=== PATIENT | female | born 2000 | race African-American/Black ===

== ENCOUNTER 2022-04-11 18:42 | Emergency (ER) | payer MEDICAID ==
[~2022-04-11] VITALS: Ht 160 cm; Wt 104.0 kg
[2022-04-11 18:47] VITALS: BP 167/100
[2022-04-11] MEDS ORDERED: HYDROCODONE/ACETAMINOPHEN 5/325MG TABLET PO ONE (20:30)
[2022-04-11] MEDS ORDERED: IBUPROFEN 400MG TABLET PO ONE (20:30)
[2022-04-11] MEDS ORDERED: MORP15TA67 MT (21:35)
[2022-04-11] MEDS ORDERED: TOPUD PO (21:35)
[2022-04-11] MEDS ORDERED: IBUP-2028 MT (21:35)
== END 2022-04-11 21:44 | disposition home or self-care (01) ==
LOC: ER 19:04
DX: S42.332A Displaced oblique fracture of shaft of humerus, left arm, initial encounter for closed fracture (principal); W01.0XXA Fall on same level from slipping, tripping and stumbling without subsequent striking against object, initial encounter; Y93.89 Activity, other specified; Y92.89 Other specified places as the place of occurrence of the external cause
CPT/HCPCS: 29105; 73060; 81025; 99283

== ENCOUNTER 2022-04-28 17:26 | Emergency (ER) | payer MEDICAID ==
[~2022-04-28] VITALS: Ht 160 cm; Wt 108.0 kg
[~2022-04-28 17:26] MED LIST: IBUP-2028 MT; MORP15TA67 MT; TOPUD PO
[2022-04-28 17:37] VITALS: BP 127/79
== END 2022-04-28 21:15 | disposition left against medical advice (07) ==
LOC: ER 17:26
DX: Z53.21 Procedure and treatment not carried out due to patient leaving prior to being seen by health care provider (principal)

== ENCOUNTER 2023-02-27 10:27 | Emergency (ER) | payer MEDICAID ==
[~2023-02-27] VITALS: Ht 160 cm; Wt 104.0 kg
[2023-02-27 10:45] VITALS: O2SAT 100
[2023-02-27 11:20] LABS: CLARITY URINE CLOUDY (CLEAR); COLOR URINE DARK YELLOW (YELLOW); KETONES URINE 1+ (NEGATIVE); LEUKOCYTE ESTERASE URINE 2+ (NEGATIVE); NITRITE URINE NEGATIVE (NEGATIVE); OCCULT BLOOD URINE NEGATIVE (NEGATIVE); PH URINE >=9.0 (4.5-8.0); PROTEIN URINE 1+ (NEGATIVE); SPECIFIC GRAVITY URINE 1.025 (1.005-1.030)
[2023-02-27 11:35] LABS: BASOPHILS % 0.4 % (0.0-2.0); EOSINOPHILS % 0.2 % (0.0-5.0); HEMATOCRIT. 43.3 % (36.0-48.0); HEMOGLOBIN. 14.5 g/dL (12.0-16.0); LYMPHOCYTES % 10.7 % (20.0-50.0); MEAN CORPUSCULAR HEMOGLOBIN 26.9 pg (28.0-32.0); MEAN CORPUSCULAR VOLUME 80.1 fL (81.0-99.0); MEAN PLATELET VOLUME 8.7 fl (7.4-10.4); MONOCYTES % 3.9 % (2.0-8.0); NEUTROPHILS % 84.8 % (40.0-76.0); PLATELET 400 x1000/uL (130-400); RED CELL DISTRIBUTION WIDTH 14.8 % (11.6-14.6)
[2023-02-27 11:44] LABS: CHLORIDE 107 mEq/L (98-107)
[2023-02-27 11:49] LABS: HCG SCREEN NEGATIVE
[2023-02-27] MEDS ORDERED: NITR-87 MT (12:18)
[2023-02-27 12:40] VITALS: BP 130/73; PULSE 80; RESP 16; TEMP 98.3
== END 2023-02-27 12:41 | disposition home or self-care (01) ==
LOC: ER 12:17
DX: R11.2 Nausea with vomiting, unspecified (principal)
CPT/HCPCS: 36415; 80053; 81003; 81025; 84703; 85025; 99283

== ENCOUNTER 2024-04-20 11:02 | Emergency (ER) | payer OTHER ==
[~2024-04-20] VITALS: Ht 160 cm; Wt 100.0 kg
[~2024-04-20 11:02] MED LIST changes: +NITR-87 MT
[2024-04-20 11:08] VITALS: O2SAT 100
[2024-04-20] MEDS ORDERED: DIPH28.33 TP (11:27)
[2024-04-20 11:59] VITALS: BP 142/94; PULSE 93; RESP 17; TEMP 37.00296; O2SAT 100
== END 2024-04-20 12:02 | disposition home or self-care (01) ==
LOC: ER 11:02
DX: R21 Rash and other nonspecific skin eruption (principal)
CPT/HCPCS: 99282